=== PATIENT | female | born 1965 | race Caucasian/White ===

== ENCOUNTER 2018-02-23 09:49 | Emergency (ER) | payer OTHER ==
[2018-02-23 09:55] VITALS: BP 142/89; PULSE 69; TEMP 97.9; BMI 25.8
[2018-02-23] MEDS ORDERED: KETOROLAC TROMETHAMINE 30 MG/1 ML VIAL IM ONE (10:26)
--- NOTE | 2018-02-23 10:26 | PDOC ---
History of Present Illness - General Chief Complaint: Pain Stated Complaint: LEFT LEG, LEFT BACK PAIN Time Seen by Provider: 02/23/18 09:51 History Source: Patient - History of Present Illness Initial Comments: 02/23/18 10:28 The patient is a 52 year old female with no PMH who presents to our ED c/o 2 day h/o back pain. States she was cleaning her [employer] decorations yesterday when she suddenly felt a sharp pain in her left lower back that radiated down her leg. States the pain is 7-8/10, intermittent, slightly improved with sitting and 3 Advil she took yesterday evening provided little relief. No associated bladder/bowel incontinence or numbness/tingling, ambulating with pain. No h/o trauma or over-exertion. 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 ROS is positive for 1 week h/o 4- 5 intermittent episodes of blurry vision and lightheadedness which are self- resolving. No prior history of similar symptoms. No known cardiac, neurologic history/prior evaluation. Notes her daughter had a baby 1 week previous and patient has not been sleeping much this week. The patient denies chest pain, shortness of breath, abdominal pain, diarrhea/ constipation, dysuria/hematuria. NKDA Surgical: none reported PMD: Dr. Land Past History - Past Medical History Allergies/Adverse Reactions: Allergies Allergy/AdvReac Type Severity Reaction Status Date / Time No Known Allergies Allergy Verified 02/23/18 09:50 Home Medications: Ambulatory Orders Escitalopram Oxalate [Lexapro -] 10 mg PO DAILY 02/23/18 Ibuprofen [Advil -] 600 mg PO ASDIR 02/23/18 Naproxen 375 mg PO QID PRN #28 tablet 02/23/18 COPD: No Psychiatric Problems: Yes (anxiety) - Suicide/Smoking/Psychosocial Hx Smoking History: Never smoked Have you smoked in the past 12 months: No Information on smoking cessation initiated: No Hx Alcohol Use: No Drug/Substance Use Hx: No Review of Systems - Review of Systems Constitutional: No: Chills, Fever HEENTM: Yes: Blurred Vision. No: Double Vision Respiratory: No: Cough, Shortness of Breath Cardiac (ROS): Yes: Lightheadedness. No: Chest Pain, Irregular Heart Rate, Palpitations, Syncope ABD/GI: No: Constipated, Diarrhea, Nausea, Vomiting : No: Burning, Dysuria Musculoskeletal: Yes: Back Pain *Physical Exam - Vital Signs Last Vital Signs Temp Pulse Resp BP Pulse Ox 97.9 F 69 18 142/89 99 02/23/18 09:49 02/23/18 09:49 02/23/18 09:49 02/23/18 09:49 02/23/18 09:49 - Physical Exam General Appearance: Yes: Nourished, Appropriately Dressed HEENT: positive: Normal Voice, Hearing Grossly Normal Neck: positive: Trachea midline, Supple Respiratory/Chest: positive: Lungs Clear, Normal Breath Sounds Cardiovascular: positive: S1, S2. negative: JVD, Murmur Gastrointestinal/Abdominal: positive: Normal Bowel Sounds, Soft. 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 VS unremarkable. Straight leg test positive. Frontal diagnosis: sciatica, also consider epidural abscess, cauda equina, osteomyelitis but all less likely given patient's clinical history and presentation. Will give Toradol for symptomatic relief. As patient also c/o 1 week h/o 4-5 episodes of lightheadedness w/blurry vision will obtain CT head to r/o CVA/TIA, EKG to r/o arrythmia, basic labs, UA to r/o infection. 02/23/18 10:50 ECG shows HR 55, normal intervals, no deviations, no YASMINE/STD/TWI; non-arrythmic/ ischemic 02/23/18 11:40 S/p Toradol Attending reassessed patient @ bedside. My read of head CT shows no ischemia Troponin (-) CBC, CMP unremarkable UA clean 02/23/18 12:26 CT head negative Patient reassessed @ bedside. Symptomatically improved Will discharge home with return precautions and PMD follow-up. Patient counseled extensively on non-concerning lab findings. Clinical Impression: Sciatica I discussed the physical exam findings, ancillary test results and final diagnoses with the patient. I answered all of the patient's questions. The patient was satisfied with the care received and felt comfortable with the discharge plan and treatment plan. The patient will call their primary care physician within 24 hours to arrange follow-up and will return to the Emergency Department with any new, persistent or worsening symptoms. *DC/Admit/Observation/Transfer Diagnosis at time of Disposition: Back pain - Discharge Dispostion Disposition: HOME Condition at time of disposition: Stable Decision to Admit order: No - Prescriptions Prescriptions: Naproxen 375 mg PO QID PRN #28 tablet PRN Reason: Back Pain - Referrals Referrals: Theresa Bass MD [Primary Care Provider] - - Patient Instructions Printed Discharge Instructions: Sciatica (Alternative Therapy), DI for Sciatica Additional Instructions: You were evaluated today for your back pain as well as your lightheadedness. A cat scan of your brain as well as labs and your EKG showed no concerning findings. At this time you are safe for discharge home. Please make a follow-up appointment with your primary care doctor in the next 3 days. We have sent a prescription for a pain medication to your pharmacy. Please take as directed and do not take this medication while taking Motrin/Ibuprofen/ Aleve or any other NSAIDs. Return to the Emergency Department for any new/worsening/concerning symptoms. - Post Discharge Activity
[2018-02-23] MEDS ORDERED: KETOROLAC TROMETHAMINE 30 MG/1 ML VIAL ONE (10:31)
[2018-02-23] MEDS ORDERED: SODIUM CHLORIDE 0.9% 500 ML INFUS.BAG IV ONE (10:48)
--- NOTE | 2018-02-23 11:09 | PDOC ---
Attending Attestation - Resident Resident Name: Kanika Azevedo - ED Attending Attestation I have performed the following: I have examined & evaluated the patient, The case was reviewed & discussed with the resident, I agree w/resident's findings & plan, Exceptions are as noted - HPI HPI: 02/23/18 12:05 52yo F presents to the ED with 1 day of L lower back pain radiating down her thigh. Pt reports pain began while she was putting away lise decorations yesterday and reached over awkwardly. Reports pain is sharp, alleviated with walking. Denies LE numbness/weakness. Denies falls or trauma. Denies urine/ stool retention or incontinence. Denies hx similar pain. On ROS, pt also notes 3-4 episodes of lightheadness, mostly while walking over the last week. States the episodes last for few seconds at a time and self resolve. She notes at times needing to sit down during the episodes, but denies falls or LOC. Has never had similar symptoms. She states she has a new grandchild that she has been taking care of - notes she has not been sleeping that much recently and feels very fatigued. Denies f/c, headche, cp/sob, abd pain, n/v/d, LE edema, dark/bloody stools, rashes. No treatments tried. - Physicial Exam PE: 02/23/18 13:10 GENERAL: Awake, alert, and fully oriented, in no acute distress HEAD: No signs of trauma EYES: PERRLA, EOMI, sclera anicteric, conjunctiva clear. OU 20/20 VA. VFF ENT: Nares patent, oropharynx clear without exudates. Moist mucosa NECK: Normal ROM, supple, no lymphadenopathy, JVD, or masses LUNGS: Breath sounds equal, clear to auscultation bilaterally. No wheezes, and no crackles HEART: Regular rate and rhythm, normal S1 and S2, no murmurs, rubs or gallops ABDOMEN: Soft, nontender, normoactive bowel sounds. No guarding, no rebound. No masses EXTREMITIES: Normal range of motion, no edema. No cords, erythema, or tenderness BACK: +straight leg test, no midline cervical, thoracic, lumbar ttp NEUROLOGICAL: Normal speech, cranial nerves intact, negative pronator drift, 5/ 5 strength in all 4 extremities, normal sensation to light touch in all 4 extremities, normal cerebellar exam, normal gait, normal reflexes and tone SKIN: Warm, Dry, normal turgor, no rashes or lesions noted. - Medical Decision Making 02/23/18 12:05 52yo F presents to the ED with L lower back pain radiating down the L leg consistent with sciatica. Pt has no numbness or tingling in the groin, no loss of bowel or bladder function, normal sensation and stregnth to the LE, and normal reflexes. There is no clinical evidence of cauda equina syndrome, diskitis, osteomyelitis, epidural abscess, or any other acute surgical back pathology. MRI is not emergently indicated at this time. With regards to brief episodes of self resolving lightheadedness, basic labs, trop, EKG, and CTH were checked which were unrevealing. Pt is asymptomatic after 1L fluids and toradol for pain control. No lightheadedness during obs in the ED. Able to ambulate in ED with no issues. Pt requests DC, advised to f/u with PMD within 1-2 days. Well appearing. I discussed the physical exam findings, ancillary test results and final diagnoses with the patient. I answered all of the patient's questions. The patient was satisfied with the care received and felt comfortable with the discharge plan and treatment plan. The patient will call their primary care physician within 24 hours to arrange follow-up and will return to the Emergency Department with any new, persistent or worsening symptoms.
[2018-02-23 11:30] LABS: HEMATOCRIT 38.8 % (32.4-45.2); HEMOGLOBIN 12.8 GM/dl (10.7-15.3); MCH 29.9 pg (25.7-33.7); MEAN CELL VOLUME 90.8 fl (80-96); RBC 4.28 M/mm3 (3.60-5.2); WHITE BLOOD COUNT 6.1 K/mm3 (4.0-10.8)
[2018-02-23 11:31] LABS: BASO % 1.2 % (0-2.0); EOS % 1.3 % (0-4.5); LYMPH % 32.3 % (8-40); MCHC 32.9 g/dl (32.0-36.0); MEAN PLT VOLUME 9.7 fl (7.5-11.1); MONO % 6.8 % (3.8-10.2); NEUT % 58.4 % (42.8-82.8); PLATELET COUNT 248 K/MM3 (134-434); RDW 13.3 % (11.6-15.6)
[2018-02-23 11:37] LABS: URINE APPEARANCE CLEAR; URINE BILIRUBIN NEGATIVE (NEGATIVE); URINE COLOR YELLOW; URINE GLUCOSE (UA) NEGATIVE (NEGATIVE); URINE KETONE NEGATIVE (NEGATIVE)
[2018-02-23 11:38] LABS: URINE LEUK ESTERASE NEGATIVE (NEGATIVE); URINE NITRITE NEGATIVE (NEGATIVE); URINE PROTEIN NEGATIVE (NEGATIVE); URINE UROBILINOGEN 0.2 (0.2-1.0)
[2018-02-23 11:55] LABS: ANION GAP 9 MMOL/L (8-16); BLOOD UREA NITROGEN 6 mg/dl (7-18); CHLORIDE 102 mmol/L (98-107); CO2 28 mmol/L (22-28); CREATININE 0.6 mg/dl (0.6-1.3); GLUCOSE,RANDOM 93 mg/dl (74-106); POTASSIUM 4.2 mmol/L (3.5-5.1); SODIUM 139 mmol/L (136-145)
[2018-02-23 11:56] LABS: ALK PHOS 86 U/L (32-92); BILIRUBIN,TOTAL 0.3 mg/dl (0.2-1.0); SGOT/AST 24 U/L (10-42); SGPT/ALT 18 U/L (10-40); TOT PROT 6.8 g/dl (6.4-8.3)
--- NOTE | 2018-02-23 17:08 | EKG ---
Test Reason : Blood Pressure : / mmHG Vent. Rate : 055 BPM Atrial Rate : 055 BPM P-R Int : 158 ms QRS Dur : 086 ms QT Int : 428 ms P-R-T Axes : 054 078 060 degrees QTc Int : 409 ms SINUS BRADYCARDIA OTHERWISE NORMAL ECG NO PREVIOUS ECGS AVAILABLE Confirmed by MD DENNIS, JESUS ([id number]) on 02/23/2018 5:06:23 PM Referred By: JACINTA Confirmed By:JESUS COLLINS MD
== END 2018-02-23 12:55 | disposition home or self-care (01) ==
LOC: FER 09:49
PROC: 3E0233Z Introduction of Anti-inflammatory into Muscle, Percutaneous Approach (ICD-10-PCS; principal; 2018-02-23)
PROC: 3E0337Z Introduction of Electrolytic and Water Balance Substance into Peripheral Vein, Percutaneous Approach (ICD-10-PCS; 2018-02-23)
DX: M54.9 Dorsalgia, unspecified (principal); F41.9 Anxiety disorder, unspecified
CPT/HCPCS: 36415; 70450-TC; 80053; 81003; 84484; 85025; 87086; 93005; 99285-25

== ENCOUNTER 2022-07-09 07:15 | Emergency (ER) | payer OTHER ==
[2022-07-09 07:35] VITALS: BP 124/79; PULSE 73; RESP 18; TEMP 98.1; BMI 25.8
[2022-07-09] MEDS ORDERED: LIDOCAINE 5% TOPICAL PATCH TP ONE (08:47)
[2022-07-09] MEDS ORDERED: LIDOCAINE 5% TOPICAL PATCH ONE (09:00)
[2022-07-09] MEDS ORDERED: LIDOCAINE PATCH REMOVAL MC ONE (22:00)
== END 2022-07-09 11:04 | disposition home or self-care (01) ==
LOC: JER 07:15
DX: M54.50 Low back pain, unspecified (principal)
CPT/HCPCS: 72100-TC-FY; 99283-25